=== PATIENT | female | born 1985 | race Caucasian/White ===

== ENCOUNTER 2019-12-03 17:55 | Emergency (ER) | payer MEDICAID ==
[~2019-12-03] VITALS: Ht 149.9 cm; Wt 43.0 kg
[2019-12-03] MEDS ORDERED: ACETAMINOPHEN 325MG TABLET PO PRN (20:30)
[2019-12-03 21:07] LABS: BASOPHILS % 0.5 % (0.0-2.0); EOSINOPHILS % 1.5 % (0.0-5.0); HEMATOCRIT. 35.6 % (36.0-48.0); HEMOGLOBIN. 12.1 g/dL (12.0-16.0); MEAN CORPUSCULAR HEMOGLOBIN 30.4 pg (28.0-32.0); MEAN CORPUSCULAR VOLUME 89.8 fL (81.0-99.0); MEAN PLATELET VOLUME 7.6 fl (7.4-10.4); MONOCYTES % 6.2 % (2.0-8.0); NEUTROPHILS % 74.8 % (40.0-76.0); PLATELET 250 x1000/uL (130-400); RED BLOOD CELL COUNT 3.97 mill/uL (4.2-5.4); RED CELL DISTRIBUTION WIDTH 13.5 % (11.6-14.6)
[2019-12-03 21:17] LABS: CHLORIDE 108 mEq/L (98-107)
[2019-12-03 21:19] LABS: CLARITY URINE CLOUDY (CLEAR); COLOR URINE RED (YELLOW); KETONES URINE NEGATIVE (NEGATIVE); LEUKOCYTE ESTERASE URINE 1+ (NEGATIVE); NITRITE URINE NEGATIVE (NEGATIVE); OCCULT BLOOD URINE 3+ (NEGATIVE); PH URINE 6.5 (4.5-8.0); PROTEIN URINE 1+ (NEGATIVE); SPECIFIC GRAVITY URINE 1.016 (1.005-1.030)
[2019-12-03 21:41] LABS: B-HCG QUANTITATIVE 2989 mIU/mL (<3)
[2019-12-03] MEDS ORDERED: NITROFURANTOIN 100MG M/M CAPSULE PO ONE (22:00)
[2019-12-04 00:01] VITALS: BP 122/71
== END 2019-12-04 00:03 | disposition home or self-care (01) ==
LOC: ER 17:55
DX: O26.891 Other specified pregnancy related conditions, first trimester (principal); O23.11 Infections of bladder in pregnancy, first trimester; O20.0 Threatened abortion; O36.4XX0 Maternal care for intrauterine death, not applicable or unspecified; Z3A.08 8 weeks gestation of pregnancy
CPT/HCPCS: 36415; 76801; 80053; 81003; 81025; 84702; 85025; 86850; 86900; 93005; 99285

== ENCOUNTER 2019-12-04 18:29 | Emergency (ER) | payer MEDICAID ==
[~2019-12-04] VITALS: Ht 149.9 cm; Wt 43.0 kg
[2019-12-04 18:30] VITALS: BP 116/66
[2019-12-04] MEDS ORDERED: ACETAMINOPHEN 325MG TABLET PO PRN (22:45)
[2019-12-04 23:12] LABS: CLARITY URINE CLEAR (CLEAR); COLOR URINE ORANGE (YELLOW); KETONES URINE 1+ (NEGATIVE); LEUKOCYTE ESTERASE URINE TRACE (NEGATIVE); NITRITE URINE NEGATIVE (NEGATIVE); OCCULT BLOOD URINE 3+ (NEGATIVE); PROTEIN URINE TRACE (NEGATIVE); SPECIFIC GRAVITY URINE 1.009 (1.005-1.030); UROBILINOGEN URINE 0.2 E.U./dL (0.2-1.0)
[2019-12-04 23:29] LABS: BASOPHILS % 0.5 % (0.0-2.0); EOSINOPHILS % 0.6 % (0.0-5.0); HEMATOCRIT. 36.3 % (36.0-48.0); HEMOGLOBIN. 12.4 g/dL (12.0-16.0); LYMPHOCYTES % 16.8 % (20.0-50.0); MEAN CORPUSCULAR HEMOGLOBIN 30.6 pg (28.0-32.0); MEAN CORPUSCULAR VOLUME 89.6 fL (81.0-99.0); MEAN PLATELET VOLUME 7.8 fl (7.4-10.4); MONOCYTES % 6.3 % (2.0-8.0); NEUTROPHILS % 75.8 % (40.0-76.0); PLATELET 255 x1000/uL (130-400); RED BLOOD CELL COUNT 4.05 mill/uL (4.2-5.4); RED CELL DISTRIBUTION WIDTH 13.5 % (11.6-14.6)
[2019-12-04 23:31] LABS: CHLORIDE 108 mEq/L (98-107)
[2019-12-04 23:55] LABS: B-HCG QUANTITATIVE 1264 mIU/mL (<3)
== END 2019-12-05 00:36 | disposition home or self-care (01) ==
LOC: ER 18:29
DX: O03.9 Complete or unspecified spontaneous abortion without complication (principal); O23.31 Infections of other parts of urinary tract in pregnancy, first trimester; Z3A.08 8 weeks gestation of pregnancy; Z98.890 Other specified postprocedural states
CPT/HCPCS: 36415; 76801; 80053; 81003; 84702; 85025; 86850; 86900; 93005; 99285

== ENCOUNTER 2020-08-14 12:08 | Emergency (ER) | payer MEDICAID ==
[~2020-08-14] VITALS: Ht 149.9 cm; Wt 49.0 kg
[2020-08-14] MEDS ORDERED: ACETAMINOPHEN 325MG TABLET PO ONE (14:00)
[2020-08-14 15:36] LABS: BASOPHILS % 0.5 % (0.0-2.0); EOSINOPHILS % 1.4 % (0.0-5.0); HEMATOCRIT. 34.3 % (36.0-48.0); HEMOGLOBIN. 11.8 g/dL (12.0-16.0); LYMPHOCYTES % 23.3 % (20.0-50.0); MEAN CORPUSCULAR HEMOGLOBIN 30.6 pg (28.0-32.0); MEAN CORPUSCULAR VOLUME 89.3 fL (81.0-99.0); MEAN PLATELET VOLUME 7.9 fl (7.4-10.4); MONOCYTES % 8.7 % (2.0-8.0); NEUTROPHILS % 66.1 % (40.0-76.0); PLATELET 271 x1000/uL (130-400); RED BLOOD CELL COUNT 3.84 mill/uL (4.2-5.4); RED CELL DISTRIBUTION WIDTH 13.5 % (11.6-14.6)
[2020-08-14 15:38] LABS: CHLORIDE 108 mEq/L (98-107)
[2020-08-14 16:07] LABS: B-HCG QUANTITATIVE 13170 mIU/mL (<3)
[2020-08-14] MEDS ORDERED: NITR-87 MT (18:43)
[2020-08-14] MEDS ORDERED: NITROFURANTOIN 100MG M/M CAPSULE PO ONE (18:45)
[2020-08-14 19:23] VITALS: BP 108/67
== END 2020-08-14 19:25 | disposition home or self-care (01) ==
LOC: ER 12:08
DX: O20.8 Other hemorrhage in early pregnancy (principal); O28.8 Other abnormal findings on antenatal screening of mother; Z3A.01 Less than 8 weeks gestation of pregnancy; Z98.890 Other specified postprocedural states
CPT/HCPCS: 36415; 76801; 80053; 81025; 84702; 85025; 86850; 86900; 99284

== ENCOUNTER 2020-12-22 14:41 | Emergency (ER) | payer MEDICAID ==
[~2020-12-22] VITALS: Ht 149.9 cm; Wt 49.0 kg
[~2020-12-22 14:41] MED LIST: NITR-87 MT
[2020-12-22] MEDS ORDERED: KETOROLAC 60MG/2ML VIAL IM ONE (15:15)
[2020-12-22] MEDS ORDERED: METHOCARBAMOL 500MG TABLET PO ONE (15:15)
[2020-12-22] MEDS ORDERED: NAPR-681 MT (16:39)
[2020-12-22] MEDS ORDERED: METH-773 MT (16:39)
[2020-12-22 16:53] VITALS: BP 122/74
== END 2020-12-22 16:53 | disposition home or self-care (01) ==
LOC: ER 14:41
DX: S16.1XXA Strain of muscle, fascia and tendon at neck level, initial encounter (principal); Z98.890 Other specified postprocedural states; V49.9XXA Car occupant (driver) (passenger) injured in unspecified traffic accident, initial encounter; Y93.89 Activity, other specified; Y92.89 Other specified places as the place of occurrence of the external cause; Y99.8 Other external cause status
CPT/HCPCS: 73030; 81025; 96372; 99283; J1885